=== PATIENT | male | born 1995 | race Asian ===

== ENCOUNTER → 2016-11-04 06:51 | Day surgery (SDC) | payer OTHER, BC ==
--- NOTE | 2016-10-25 17:31 | HP ---
PREOPERATIVE HISTORY AND PHYSICAL: DATE OF ADMISSION/SURGERY: 11/04/16 PROCEDURE: Right knee arthroscopic anterior cruciate ligament reconstruction. CHIEF COMPLAINT: Right knee pain. HISTORY OF PRESENT ILLNESS: Luis is a 21-year-old male who presents to the clinic with right knee pain after an injury while playing volleyball. His pain is due to an ACL tear and a partial LCL tea r. He has failed conservative measures and has therefore, agreed to undergo a right knee arthroscop ic anterior cruciate ligament reconstruction using bone patellar tendon bone autograft with Dr. Reid chung on 11/04/16. PAST MEDICAL HISTORY: Negative. PAST SURGICAL HISTORY: Negative. MEDICATIONS: None. ALLERGIES: No known drug allergies. FAMILY HISTORY: Maternal grandfather positive for abdominal cancer. SOCIAL HISTORY: He lives with his 3 roommates. He is studying [employer] at [employer]. Yosi s family is from [place]. He denies tobacco or alcohol use. He exercises regularly. He is right h and dominant. REVIEW OF SYSTEMS: A 14-point review of systems was reviewed with the patient. Positive for previou s fracture in his right hand, 2014, and positive for right knee pain. Otherwise negative. Denies c hest pain, shortness of breath, history of bleeding disorder, or history of DVT or PE. PHYSICAL EXAMINATION GENERAL: Well-developed, well-nourished 21-year-old male in no acute distress, alert and oriented x 3. Appropriate mood and affect. VITAL SIGNS: Height 68, weight 160, pulse 64, blood pressure 114/64, respiratory rate 16, BMI 24.3. HEENT: Normocephalic, atraumatic. NECK: Supple. Throat clear. PULMONARY: Lungs clear to auscultation bilaterally. No wheezing, rhonchi, or rales. CARDIO: Regular rate and rhythm. S1, S2. No murmurs, gallops, or rubs. No edema. ABDOMEN: Positive bowel sounds. Soft, nontender. NEUROLOGIC: Alert and oriented x3. Cranial nerves grossly intact. Sensation is intact to light to uch distally. MUSCULOSKELETAL: Right lower extremity: Skin is intact. No erythema or warmth. Moderate effusion. Nontender to palpation medially. Range of motion from 5 to 90 degrees, 2B Vanessa, negative poste rior drawer. Stable to varus and valgus stress. Calf is soft, nontender. +2 dorsalis pedis pulse. Sensation intact to light touch distally. STUDIES: X-rays and MRI's were reviewed and revealed a grade 3 ACL rupture with mild sprain of the LCL. IMPRESSION: Right knee ACL tear grade 3. PLAN: The patient is scheduled to undergo a right knee arthroscopic anterior cruciate ligament ru nstruction using bone patellar tendon bone autograft with Dr. Hernandez on 11/04/16. His LCL injury fernandez s improved. Therefore, we will proceed with surgery. He will return to the clinic 10 to 14 days po stop for followup and suture removal. Percocet will be used for postoperative pain management. PRASHANT SANCHEZ [id number]/[facility] #: [id number]
[~2016-11-04 06:51] MED LIST: Buffered Lidocaine 1% SYR 3ML* 3 ML/SYR SYRINGE INTRADERM ONE; Bupivacaine 0.25% EPI 200,000* 30 ML SDV ONE; Bupivacaine 0.25% SDV* 30 ML ONE; Dexamethasone IV* 4 MG/ML 1 ML (4 MG) ONE; DiMENhydriNATE IV* 50 MG/ML VIAL IV PUSH PRN; Famotidine IV* 10 MG/ML 2 ML (20 mg) IV ONE; Famotidine IV* 10 MG/ML 2 ML (20 mg) ONE; HYDROmorphone INJ* 1 MG/ML CARPUJECT SYRINGE IV PRN; HYDROmorphone INJ* 1 MG/ML CARPUJECT SYRINGE ONE; Ketorolac INJ* 30 MG/ML 1 ML VIAL ONE; Lidocaine 2% PF * 5 ML VIAL ONE; Midazolam* 1 MG/ML 5 ML VIAL (5 MG) ONE; Ondansetron INJ* 2 MG/ML VIAL ONE; Propofol* 10 MG/ML 20 ML BTL IV PUSH ONE; ceFAZolin 2 GM PREMIX (*) 2 GM/50 ML BAG IVPB ONE; fentaNYL* 50 MCG/ML 2 ML VIAL (100 MCG VIAL) ONE; oxyCODONE/Acetamin 5/325 MG* TAB ONE; oxyCODONE/Acetamin 5/325 MG* TAB PO PRN
[2016-11-04 11:17] VITALS: BP 134/65
--- NOTE | 2016-11-05 01:52 | OP ---
DATE OF OPERATION: 11/04/16 - [facility] DATE OF : 89 ATTENDING SURGEON: Suzy Hernandez MD ASSISTANTS: PRASHANT Smart. An payroll and benefits assistant was needed for the entirety of case to help with positioning, retraction, as well as closure. ANESTHESIOLOGIST: Dr. Knight. ANESTHESIA: General. PRE-OP DIAGNOSES: Right grade 3 ACL rupture and LCL sprain. POST-OP DIAGNOSES: Right grade 3 ACL rupture and LCL sprain. OPERATIVE PROCEDURE: Right knee arthroscopy with ACL reconstruction using bone - patella tendon-bone autograft. INDICATIONS: Luis Weinstein is a 21-year-old male who sustained injury to his right knee. He was diagnosed with a grade 3 ACL rupture as well as an LCL sprain. He underwent rehab to get his range of motion back as well as allow the FCL to heal. After an extensive discussion of conservative versus operative treatment, he has elected to proceed with operative treatment. The risks included, but are not limited to bleeding, infection, damage to nerves, vessels , surrounding structures, wound nonhealing, persistent pain, need for further surgery, stiffness, scarring, risk of DVT, failure of the repair, fracture and risk of anesthesia. He has elected to proceed with surgery. ESTIMATED BLOOD LOSS: Less than 25. TOURNIQUET TIME: 34 minutes at 240 mmHg. IMPLANTS: Thomason [employer] Nephew SoftSilk screws, 7 x 25 and 9 x 20. DESCRIPTION OF PROCEDURE: The patient was greeted in the preoperative area by the attending surgeon. The correct extremity was marked, consent was confirmed. The patient was then brought back to the operating suite, where he was placed in the supine position on the operating table. He then underwent general anesthesia and LMA intubation after which he, on examination of the knee , was found to have range of motion 0 to 130 degrees, stable to varus and valgus stress at 0 and 130 degrees, 2B Vanessa, negative posterior drawer, no effusion. After a miniature surgical pause, the right knee was intra- articularly injected with 0.25% Marcaine with epi. An unsterile tourniquet was placed high on the proximal thigh as well as lateral post and a small bump at the end of the bed to allow to keep the knee at 90 degrees. The right knee was prepped and draped in the usual sterile fashion beginning with a pre-scrub of chlorhexidine soap and alcohol wipe and a final prep of ChloraPrep. After appropriate surgical pause indicating site, side, procedure, administration of antibiotics, a midline incision was centered over the patellar tendon that was made sharply with a 10 blade. The soft tissues were carefully dissected to expose the paratenon, which was densely scarred to the bursa and these were kept in layers for later closure. Once the peritenon was then incised with a deep blade, flaps were maintained for again later closure. The patellar tendon was found to be quite broad to be about 38 mm. The center 10 mm was then harvested using fresh 10 blade for a width of 10 mm. The harvest was carried proximally to the patella for a size 9 x 25 mm bone block. These were initially outlined with the electrocautery device and then a sagittal saw was used to make the cuts distally. The tibial bone block was harvested for a 10 x 30 mm bone blocks. The sagittal saw was again used to make the cuts and the graft was then harvested. The bone plugs were then predrilled before the final cuts were made. The osteotome was used to loosen them and these were then prepared on the back table for a size 9 x 25 femoral tunnel and a size 10 x 30 tibial tunnel. The excess bone graft was saved for later placement in the patella or tibial defect. At this point, the attending surgeon was preparing the graft on the back table and the payroll and benefits assistant was closing the patellar tendon with 0 Vicryl interrupted stitches with the care to try to prevent patellar baja. After the grafts were prepared and wrapped in saline soaked gauze on the back table, the arthroscopy portion began. The 11 blade was then used to place a small mainor in the capsule. The scope was introduced to the joint. There was abundant hyperemic tissue. There was evidence of hemarthrosis and hemosiderin deposits all around the knee. There was abundant fat pad as well. The anteromedial portal was made through the capsule under localization using an 18-gauge needle. The shaver was used to remove the abundant fat pad. The electrocautery device was used to maintain hemostasis. The scope was then placed in the suprapatellar pouch and the patella had grade 0 changes, the trochlea had grade 0 changes. The medial and lateral gutters were intact. The medial compartment had grade 0 changes with a stable meniscus. The knee was placed in a [id number] position. The lateral compartment had grade 0 changes. There was some damage to the lateral root of the meniscus, but it appeared to be minor. There were no unstable flaps. The remainder of the meniscus was intact. The tibial plateau and the femur had grade 0 changes. Attention was directed to the notch. There was evidence of a full-thickness tear of the PL bundle and at least 50% of the AM bundle was torn. There was some scarring to the PCL. There was a large stump that was present anteriorly. The biter and shaver were used to debride this back. The lateral femoral condyle was then carefully skeletonized after the stumps and the remaining scar tissue were removed. A small notch plasty was done to allow for greater exposure to the posterior aspect of the knee. The tibial footprint was also prepared using electrocautery device. Once the footprints were prepared, a Nina awl was then used to soraya where the supposed femoral position would be. This was checked under visualization by moving the scope to the medial portal and then the lateral portal just to make sure its appropriate position. After this, the attention was directed to the tibia. The tip-to-tip guide set to 50 degrees was then placed in the center of the ACL. Once the guide pin was placed in appropriate position, this was overdrilled with a size 10 mm full bore reamer. All excess bone was saved for bone graft. The tunnel was then further prepared and all soft tissue was removed using the shaver. Any sharp edges were debrided down using the half round rasp. Tunnel appeared to be in good position. Care was placed to prevent any fluid egress. Next, the Thomason [employer] Nephew straight guidewire was placed in the center of the footprint using the previously marked [place] awl position as a guide. The knee was then placed in hyperflexion of 130 degrees. The Beath pin was then drilled through the center of the footprint out through the lateral cortex and through the skin, IT band and then the skin. This was found to be in good position. The scope was changed from lateral to the medial portal to visualize to make sure there was enough back wall and this was appropriately positioned. After this, the 9-mm low profile reamer was then used to drill to a depth of about 27 mm. All excess bone and debris were removed. The tunnel was examined and found to be have a back wall. After this was completed, the business banker was used to notch the tunnel to facilitate nitinol wire placement. A 2-0 Ti-Cron was then passed through the eyelid of the Beath pin and then passed through the lateral wound in an anterograde fashion to the tibial tunnel. The graft was brought to the operative table and then passed under direct arthroscopic visualization with the femoral bone block was well seated in the tunnel. At this point, a size 7 x 25 mm SoftSilk screw was then secured by using a nitinol wire as a guide and a protection sleeve to protect the graft. This was placed with excellent purchase. Images were obtained of the graft with some gentle tension on the tibial sutures and then the knee in full extension. There was no evidence of impingement. At this point, the knee was cycled 15 times. The scope was placed back to the joint and the ACL had not moved. At this point, attention was directed to the tibia with the knee placed in gentle flexion of about 20 to 30 degrees with posterior drawer as well as tension on the tibial sutures. A size 9 x 20 mm screw was used as an interference screw to secure the graft with excellent purchase. At this point, range of motion was assessed and found to be full from 0 to 130 degrees and Vanessa was stable. The scope was brought back to the joint to visualize the graft. Images were obtained to confirm the position and there were no changes. The final images were obtained. The wounds were then copiously irrigated as the bone graft was being placed into the patellar defect. It was identified that the scope had malfunctioned and none of the pictures have saved, therefore after closing the bone graft to the patellar defect, the scope was replaced into the joint and images were taken again each of the joint compartments as well as the final result of the ACL. The wounds were copiously irrigated. The peritenon was closed with 2-0 Vicryl. The remaining bone graft was placed in the tibial defect. The skin was closed in layers with 2-0 Vicryl for subcutaneous tissue and 3-0 Monocryl for skin. Sterile dressings were applied. The wound was injected with 0.25% Marcaine plain 10 mm along the patellar wound and 20 mm intra- articularly. Sterile dressings were applied. A Cryo/ Cuff as well as a hinged knee brace locked in extension. The patient was awoken from anesthesia and transferred to PACU in stable condition. POSTOPERATIVE PLAN: He will be weightbearing as tolerated with the knee locked in extension for 4 weeks while walking. He will start physical therapy on . He will be discharged on pain medication and antibiotics. DVT prophylaxis was discussed, but deferred due to no previous, personal, or family history. I will see the patient back in about 8 days. [id number]/[facility] #: [id number] MTDHawa
== END | disposition home or self-care (01) ==
LOC: OREAST 06:51
PROVIDERS: ATTEND Orthopaedic Surgery
DX: S83.511A Sprain of anterior cruciate ligament of right knee, initial encounter (principal); S83.421A Sprain of lateral collateral ligament of right knee, initial encounter; X50.0XXA Overexertion from strenuous movement or load, initial encounter; Y93.68 Activity, volleyball (beach) (court); Y92.318 Other athletic court as the place of occurrence of the external cause
CPT/HCPCS: 88304; A9270-GY; C1713; J0690; J1100; J1170; J1885; J2250; J2405; J2704; J3010